=== PATIENT | male | born 1960 | race Caucasian/White ===

== ENCOUNTER 2017-11-17 01:21 | Emergency (ER) | payer OTHER ==
[2017-11-17] MEDS ORDERED: HYDROCODONE/APAP 10/325 TAB ONE (02:10)
[2017-11-17] MEDS ORDERED: KETOROLAC 30 MG/ML INJ ONE (02:10)
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
[2017-11-17 03:05] LABS: Urine Blood NEGATIVE (NEG); Urine Glucose NEGATIVE (NEG); Urine Protein 2+ (NEG); Urine pH 5.5 (5.0-7.0)
--- NOTE | 2017-11-17 11:48 | RAD REPORT ---
EXAM DESCRIPTION: RAD - Chest Pa And Lat (2 Views) - 11/17/2017 2:29 am CLINICAL HISTORY: CHEST PAIN Chest pain. COMPARISON: No comparisons FINDINGS: The lungs are clear. The heart is normal in size. No displaced fractures. IMPRESSION: No acute or concerning finding suspected.
== END 2017-11-17 02:56 | disposition home or self-care (01) ==
LOC: ER 01:21
DX: S20.222A Contusion of left back wall of thorax, initial encounter (principal); S10.0XXA Contusion of throat, initial encounter; S20.212A Contusion of left front wall of thorax, initial encounter; Y04.2XXA Assault by strike against or bumped into by another person, initial encounter; Y92.9 Unspecified place or not applicable; I10 Essential (primary) hypertension; E78.5 Hyperlipidemia, unspecified; F17.210 Nicotine dependence, cigarettes, uncomplicated
CPT/HCPCS: 71046; 81003; 96372; 99284